=== PATIENT | male | born 1995 | race Caucasian/White ===

== ENCOUNTER 2022-12-19 21:56 | Emergency (ER) | payer SELFPAY ==
[~2022-12-19] VITALS: Ht 167.6 cm; Wt 52.6 kg
[2022-12-19] MEDS ORDERED: ONDANSETRON HCL INJ 2MG/ML 2ML 2 MG/ML VIAL IV STA (22:28)
[2022-12-19] MEDS ORDERED: IBUPROFEN 600 MG TAB PO STA (22:30)
[2022-12-19] MEDS ORDERED: IBUPROFEN 600 MG TAB ONE (22:39)
[2022-12-19] MEDS ORDERED: SODIUM CHLORIDE 0.9% 1000ML 1,000 ML ONE (22:40)
[2022-12-19] MEDS ORDERED: ONDANSETRON HCL INJ 2MG/ML 2ML 2 MG/ML VIAL ONE (22:40)
[2022-12-19] MEDS ORDERED: SODIUM CHLORIDE 0.9% 1000ML 1,000 ML IV ONE (23:30)
[2022-12-19] MEDS ORDERED: ONDANSETRON ODT4 MG PO (23:31)
[2022-12-19] MEDS ORDERED: DICYCLOMINE HCL10 MG PO (23:31)
[2022-12-19 23:38] VITALS: BP 126/84
== END 2022-12-19 23:38 | disposition home or self-care (01) ==
LOC: FSED 22:29
DX: R10.9 Unspecified abdominal pain (principal); R19.7 Diarrhea, unspecified; R11.0 Nausea; G40.909 Epilepsy, unspecified, not intractable, without status epilepticus
CPT/HCPCS: 74176; 80048; 80076; 81003; 85025; 87400; 99284; J2405; J7030